=== PATIENT | female | born 1955 | race Caucasian/White ===

== ENCOUNTER 2019-11-07 21:48 | Emergency (ER) | payer MEDICAID ==
[~2019-11-07] VITALS: Ht 170.2 cm; Wt 75.0 kg
[~2019-11-07 21:48] MED LIST: NONE PER PT
--- NOTE | 2019-11-07 22:39 | NUR ---
SPOKE WITH JANKI EASTMAN AT [facility], VERIFIED WITH PRIMARY MD THAT NG TUBE OK RATHER THAN CORE TRAK
--- NOTE | 2019-11-07 23:35 | NUR ---
14F NG TUBE PLACED. PT TOLERATED WELL. VSS
--- NOTE | 2019-11-07 23:47 | NUR ---
[facility] TO TRANSPORT PT BACK TO [place], [facility] FAXED.
[2019-11-07 23:59] VITALS: BP 129/93
--- NOTE | 2019-11-08 00:32 | NUR ---
THROUGHPUT: MTM TO CALL BACK WITH CONFIRMATION # AFTER THEY HAVE ARRANGED LOCAL TRANSPORT PER [facility] ([facility]).
--- NOTE | 2019-11-08 00:58 | NUR ---
THROUGHPUT: [facility]ANDA RECBIRD CONF# FROM [facility] & SET UP TRANSPORT TO [place] FOR 0130.
--- NOTE | 2019-11-08 01:17 | NUR ---
REPORT CALLED TO JAREN SHEARER AT [place].
== END 2019-11-08 01:16 ==
LOC: ED 11-08 01:10
DX: Z46.59 Encounter for fitting and adjustment of other gastrointestinal appliance and device (principal)
CPT/HCPCS: 99284